=== PATIENT | male | born 1955 | race Caucasian/White ===

== ENCOUNTER 2020-06-17 06:58 | Emergency (ER) | payer OTHER, SELFPAY ==
[2020-06-17 06:59] VITALS: BP 137/87; PULSE 71; RESP 14; TEMP 36.9; O2SAT 97; BMI 26.6
--- NOTE | 2020-06-17 07:04 | ED.DCSUM_ITS ---
History of Present Illness Chief Complaint: Shortness of Breath Past Medical History - Allergies and Home Meds Allergies/Adverse Reactions: Allergies No Known Allergies Allergy (Verified 06/17/20 07:04) Primary Care Physician: Angel Roe MD [Primary Care Provider] - Past Medical History: None Surgical History: noncontributory Lives: Spouse/ Significant Other Smoking Status: Never smoker Alcohol: None Drugs: None Review of Systems General: Reports: Malaise. Denies: Chills, Fever Eyes: Denies: Visual changes - bilaterally, Diplopia ENT: Denies: Rhinorrhea, Sore throat Cardiovascular: Denies: Chest pain, Palpitations Respiratory: Denies: Dyspnea, Cough, Dyspnea on exertion Gastrointestinal: Reports: Nausea. Denies: Diarrhea, Constipation Genitourinary: Denies: Dysuria, Hematuria Musculoskeletal: Denies: Back pain, Extremity Pain Skin: Denies: Rash, Wounds Neurological: Denies: Headache, Weakness, Numbness Physical Exam Vital Signs/Narrative: Vital Signs Temp Pulse Resp BP Pulse Ox 06/17/20 06:59 98.5 F 71 14 137/87 H 97 General: Well nourished, No Acute Distress Head: Normocephalic, Atraumatic Eyes: Perrl, EOMI ENT: Moist mucous membranes, No rhinorrhea Cardiovascular: Regular rate, Regular rhythm Respiratory: No distress, CTA bilaterally, Chest nontender Abdomen: Soft, Nontender, Nondistended Extremities: Nontender, No edema Skin: Normal color, No rash, Cyanosis Neurological: Alert, Oriented x3 Psychological: Normal affect, Normal Mood Diagnostic/Tx/Re-eval - Medical Decision Making 64-year-old male presenting with nausea and decreased appetite. He states that his had Covid?19 symptoms and tested positive on 02 June. He states he developed symptoms of cough, cold, decreased taste and smell on the 04 June. He since has no more cough, shortness of breath, fever. He states that he has retained his decreased appetite and loss of taste and smell. Says that when he eats food he gets gassy and a little nauseous. He states he has had some burning in his stomach area but does not have a history of GERD. He denies any other medical problems. He states he has been able to eat food such as hamburger, peaches, yogurt. He is making normal stool and urine. His has recovered. Patient has a normal physical exam with no abdominal discomfort on palpation. His lungs are clear to auscultation. His heart rate is regular rate and rhythm without murmur. His vital signs are stable and he is afebrile. He is nontoxic appearing. He is not hypoxic. He denies any sort of chest pain. Patient was offered lab work and imaging versus some Zofran and Pepcid, and he feels he just needs something for nausea and to settle his stomach. I feel that this is reasonable. I did senior genetic counselor the patient that he may retain loss of taste and smell and decreased appetite for short while longer. He is encouraged to keep hydrating and eat foods that do not cause stomach upset. He acknowledges understanding. He understands that he likely has Covid?19 and he would be on day 13 so I do not believe he needs to be tested especially given that his tested positive. He was counseled on staying home and quarantined given that he has not been doing this. Patient is given return precautions. He is discharged home in stable condition with Zofran and Pepcid. Impression: 1. Nausea 2. Decreased taste and smell 3. Decreased appetite 4. Exposure to Covid?19 ED Disposition - Plan for ED Patient: Disposition: Home or Assisted Living Instructions: ED Diet for Vomiting or Diarrhea Adult Prescriptions: Famotidine [Pepcid] 20 mg PO BID #28 tab Prescription Printed Ondansetron [Zofran Odt] 4 mg PO Q8H PRN PRN #10 tab PRN Reason: Nausea Prescription Printed Referrals: Angel Roe MD [Primary Care Provider] -
[2020-06-17] MEDS: Ondansetron ODT 4 MG Tablet PO (07:40)
[2020-06-17] MEDS: Famotidine 20 MG Tablet PO (07:40)
[2020-06-17 07:45] VITALS: BP 135/74; PULSE 76; RESP 15; O2SAT 98
== END 2020-06-17 07:47 | disposition home or self-care (01) ==
LOC: ED 07:46
PROVIDERS: Emergency Provider Student in an Organized Health Care Education/Training Program; PCP Family Medicine
DX: R11.0 Nausea (principal); R63.8 Other symptoms and signs concerning food and fluid intake; Z20.828 Contact with and (suspected) exposure to other viral communicable diseases
CPT/HCPCS: 99282